=== PATIENT | female | born 1985 | race Caucasian/White ===

== ENCOUNTER → 2022-03-30 | Outpatient (CLI) | payer BC | END | disposition home or self-care (01) | LOC: RAH 10:49 | PROVIDERS: ATTEND Internal Medicine Gastroenterology | DX: R10.13 Epigastric pain (principal); R14.0 Abdominal distension (gaseous); R63.4 Abnormal weight loss; R68.81 Early satiety | CPT/HCPCS: 78264; A9541 ==